=== PATIENT | female | born 1960 | race African-American/Black ===

== ENCOUNTER 2017-01-01 12:32 | Observation (INO) | payer OTHER ==
--- NOTE | ~2017-01-01 | HP ---
History And Physical [place] [id number] [facility] [place] [address] NAME: RAUL TIERNEY : 58 STATUS : ADM Eleazar PAT#: [id number] AGE: 56 ADM/REG DATE : 01/01/17 MR#: [id number] REPORT SERV DATE: 01/01/17 DICTATED BY: LEON DOVER DATE: 01/01/17 REPORT STATUS : Draft TRANSCRIBED BY: MODKyle DATE: 01/01/17 DATE OF ADMISSION: 01/01/2017 CHIEF COMPLAINT: Abdominal pain. HISTORY OF PRESENT ILLNESS: Ms. Tierney is a 56-year-old female with one-day history of abdominal pain, nausea, and vomiting. She has previously had two small bowel obstructions; one in 2014 that was treated operatively, one in 2015 that resolved medically. She has had multiple abdominal surgeries including an appendectomy, cholecystectomy, umbilical hernia repair, and hysterectomy. She states that her pain began yesterday afternoon. It is intermittent in nature. She had had a bowel movement yesterday morning prior to the onset of her pain. The pain resolved yesterday evening after taking an [place]. This morning, she woke up and felt well, went to [facility], and had recurrence of her abdominal pain this afternoon. Additionally, she began having emesis this afternoon. Secondary to these symptoms, she presented to the emergency room for further evaluation and management. CT scan was obtained. This was read by the radiologist as dilation of small bowel loops with decompression of the distal small bowel consistent with a mid small bowel obstruction, some retained stool was present throughout the colon. Surgery was consulted for further evaluation and management. PAST MEDICAL HISTORY AND PAST SURGICAL HISTORY: As above. Additionally, a knee surgery and a left total shoulder surgery for lipoma removal. HOME MEDICATIONS: Reviewed. These include Zyrtec, Advil, milk of magnesia, Metamucil, Refresh drops, triamcinolone cream. ALLERGIES: INCLUDE OXYCODONE, WHICH CAUSES HALLUCINATIONS. SOCIAL HISTORY: The patient is . She lives in [place], [place]. REVIEW OF SYSTEMS: Positive for the symptoms elicited in the history of present illness. Additionally, it was negative for fever, chills, or dysuria. Otherwise, it was negative. FAMILY HISTORY: Includes diabetes and coronary artery disease. PHYSICAL EXAMINATION: VITAL SIGNS: Temperature is 98.9, blood pressure is 172/84, heart rate 71, respirations 18, oxygen saturation 96% on room air. GENERAL: Pleasant woman sitting in bed, conversant, in no acute distress. Alert and oriented to person, place, time, and situation. HEENT: Normocephalic, atraumatic. Pupils are equal, round, and reactive to light. Extraocular motions intact. Nasopharynx and oropharynx are clear. NECK: Supple. LUNGS: Clear to auscultation bilaterally with equal breath sounds. HEART: Regular rate and rhythm. History And Physical [address] [address] NAME: RAUL TIERNEY : 58 STATUS : ADM Eleazar PAT#: [id number] AGE: 56 ADM/REG DATE : 01/01/17 MR#: [id number] REPORT SERV DATE: 01/01/17 DICTATED BY: LEON DOVER DATE: 01/01/17 REPORT STATUS : Draft TRANSCRIBED BY: PENG DATE: 01/01/17 ABDOMEN: Abdomen is soft. It is nontender. It is nondistended. She does endorse tenderness around her umbilicus when she performs deep palpation; however, she also states that sometimes that putting pressure on this area makes it feel better. EXTREMITIES: No deformity. NEUROLOGIC: No gross motor or sensory deficits are elicited on examination. LABORATORY DATA: All available laboratory data were reviewed in full. CBC is normal. CMP is normal. Urinalysis is normal. RADIOGRAPHIC DATA: CT scan of the abdomen and pelvis was reviewed. ASSESSMENT AND PLAN: Ms. Tierney is a 56-year-old female with recurrent small bowel obstruction. Currently, she has no peritonitis, urgent surgical intervention is not indicated. Recommend continuing n.p.o., IV fluids for dehydration, antiemetic as needed, analgesia as needed. We will obtain a small bowel followthrough today to further characterize her problem. Additionally, as she continues to pass flatus, this is not a complete small bowel obstruction, it is partial. This assessment and plan has been discussed with the attending physician, Dr. Leon Dover, who is in agreement at this time. DICTATED BY: MD MELANIE Ceja/PENG Leon Dover MD / [id number] CC: MD Kevin Randhawa M.D.
[~2017-01-01 12:32] MED LIST: ADVIL PO; DYMISTA NASAL S23 GM NAS; ENDOCET1 TAB PO; INHALER; LEVSINTAB PO; LIQUID TEARS OPH; NASAL SPRAY NAS; NEXIUM PO; NORCO1 TA1 PO; P20 PO; PR25 PO; PREDNISONE PO; PROBIOTIC PO; PROVHFA INH; REFRESH OPH; RX CREAM TOP; TRIAMCINOLONE C80 GM TOP
[2017-01-01 12:59] LABS: WBC (NOT ORDERED) (RFLEX) 0 (0-5)
[2017-01-01 13:08] LABS: ASCORBIC ACID (UR NOT ORDER) NEG (NEG); BILIRUBIN, URINE NEGATIVE (NEG); ER URINALYSIS TAT 0 Hrs 12 Mins; KETONE, URINE NEGATIVE (NEG); LEUKOCYTE ESTERASE(NOT OR NEG (NEG); NITRITE (URINE) NEG (NEG)
[2017-01-01 13:18] LABS: BASOPHILS 0 %; EOSINOPHILS 0.2 %; EOSINOPHILS ABSOLUTE 0.01 10/3/uL (0.0-0.53); HEMATOCRIT 43.3 % (36.0-48.0); HEMOGLOBIN 14.2 g/dL (12.0-16.0); IMMATURE GRANULOCYTES 0.2 %; IMMATURE GRANULOCYTES ABSOLUTE 0.01 10/3/uL (0.0-0.11); LYMPHOCYTES 22.7 %; MEAN CORPUS HGB CONC 32.8 g/dL (32.0-36.0); MEAN CORPUSCULAR HEMOGLOB 27.1 pg (26.0-34.0); MEAN CORPUSCULAR VOLUME 82.6 fL (80-100); MEAN PLATELET VOLUME 9.5 fL (9.2-13.0); MONOCYTES 8.7 %; MONOCYTES ABSOLUTE 0.46 10/3/uL (0.21-1.20); NEUTROPHILS 68.2 %; NEUTROPHILS ABSOLUTE 3.61 10/3/uL (2.02-8.40); PLATELET COUNT 296 10/3/uL (150-400); RBC DISTRIBUTION WIDTH 13.3 % (12.0-16.0); RED CELL COUNT 5.24 10/6/uL (4.0-5.6); WHITE BLOOD CELLS 5.3 10/3/uL (4.5-10.5)
[2017-01-01 13:19] LABS: MANUAL DIFF NO %
[2017-01-01 13:35] LABS: A/G RATIO 0.9 (0.7-1.9); ALBUMIN 3.6 G/DL (3.5-5.0); BUN (BLOOD UREA NITROGEN) 10 MG/DL (6-23); CHLORIDE, SERUM 104 MMOL/L (96-112); CO2 (CARBON DIOXIDE) 31 MMOL/L (24-34); CREATININE 0.82 MG/DL (0.55-1.02); GFR AFRICAN AMERICAN 92 ML/MIN (>=60); GFR NON AFRICAN AMERICAN 79 ML/MIN (>=60); GLOBULIN 3.9 G/DL (2.5-4.1); GLUCOSE, SERUM 112 MG/DL (60-99); POTASSIUM, SERUM 3.6 MMOL/L (3.5-5.3); SGOT(AST) 17 U/L (5-40); SGPT(ALT) 45 U/L (5-65); SODIUM, SERUM 144 MMOL/L (135-148); TOTAL BILIRUBIN 0.3 MG/DL (0-1.2); TOTAL PROTEIN 7.5 G/DL (6.0-8.5)
[2017-01-01 13:37] LABS: ALKALINE PHOSPHATASE 114 U/L (45-117); CALCIUM, SERUM 9.9 MG/DL (8.5-10.4)
[2017-01-01] MEDS ORDERED: ZYRTEC ALLGY10 MG PO (14:46)
[2017-01-01] MEDS ORDERED: METAMUCIL CAN7 OZ PO (14:46)
[2017-01-01] MEDS ORDERED: ADVIL PO (14:47)
[2017-01-01] MEDS ORDERED: MOMUD PO (14:48)
[2017-01-01] MEDS ORDERED: REFRES1 IO (14:48)
[2017-01-01] MEDS ORDERED: TRIAMCINOLONE C80 GM TOP (14:49)
[2017-01-02 05:59] LABS: BASOPHILS 0.2 %; BASOPHILS ABSOLUTE 0.01 10/3/uL (0.0-0.16); EOSINOPHILS 0.7 %; EOSINOPHILS ABSOLUTE 0.03 10/3/uL (0.0-0.53); HEMATOCRIT 40.6 % (36.0-48.0); HEMOGLOBIN 12.5 g/dL (12.0-16.0); LYMPHOCYTES ABSOLUTE 2.12 10/3/uL (0.67-4.30); MEAN CORPUSCULAR VOLUME 84.6 fL (80-100); MEAN PLATELET VOLUME 9.6 fL (9.2-13.0); MONOCYTES 14.2 %; MONOCYTES ABSOLUTE 0.59 10/3/uL (0.21-1.20); NEUTROPHILS 33.9 %; NEUTROPHILS ABSOLUTE 1.41 10/3/uL (2.02-8.40); PLATELET COUNT 271 10/3/uL (150-400); RBC DISTRIBUTION WIDTH 13.5 % (12.0-16.0); WHITE BLOOD CELLS 4.2 10/3/uL (4.5-10.5)
[2017-01-02 06:02] LABS: MANUAL DIFF NO %; MEAN CORPUS HGB CONC 30.8 g/dL (32.0-36.0)
[2017-01-02 06:06] LABS: BUN (BLOOD UREA NITROGEN) 10 MG/DL (6-23); CHLORIDE, SERUM 108 MMOL/L (96-112); CO2 (CARBON DIOXIDE) 32 MMOL/L (24-34); CREATININE 0.89 MG/DL (0.55-1.02); GFR AFRICAN AMERICAN 83 ML/MIN (>=60); GFR NON AFRICAN AMERICAN 72 ML/MIN (>=60); GLUCOSE, SERUM 101 MG/DL (60-99); POTASSIUM, SERUM 4.2 MMOL/L (3.5-5.3); SODIUM, SERUM 144 MMOL/L (135-148)
[2017-01-02 06:07] LABS: CALCIUM, SERUM 8.9 MG/DL (8.5-10.4)
== END 2017-01-02 11:05 | disposition home or self-care (01) ==
LOC: ER 12:32 → 4SO 16:32
PROVIDERS: Emergency Medicine; Physician Assistant
DX: K56.60 Unspecified intestinal obstruction (principal); K21.9 Gastro-esophageal reflux disease without esophagitis; M19.90 Unspecified osteoarthritis, unspecified site; Z90.49 Acquired absence of other specified parts of digestive tract; Z90.710 Acquired absence of both cervix and uterus; Z98.890 Other specified postprocedural states; Z79.899 Other long term (current) drug therapy; Z88.8 Allergy status to other drugs, medicaments and biological substances
CPT/HCPCS: 74020; 74176; 74250; 80048; 80053; 81001; 83690; 85025; 96374; 96375; 99285; A9270-GY; G0378; J1885; J1980; J2405